=== PATIENT | male | born 1965 | race Caucasian/White ===

== ENCOUNTER 2017-10-05 15:25 | Inpatient (IN) | payer OTHER ==
--- NOTE | 2017-10-05 15:52 | EDPHY ---
H & P Time Seen by Provider: 10/05/17 15:44 HPI/ROS: CHIEF COMPLAINT: Dizziness, headache, hypertensive (240/143) HISTORY OF PRESENT ILLNESS: The patient is a 52 y/o male with a history of hypertension and diabetes complaining of headache, dizziness, blurred vision, and hypertension for 2 weeks. He was recently uninsured and unable to afford his medication for several months and as such stopped taking carvedilol, aspirin , Lasix, and diabetes medication (though his recent A1C was normal). He has been working for several weeks now at a job requiring him to be on his feet most of the day. Two weeks ago he began experiencing dizziness, blurred vision, and swollen feet. He was also having difficulty walking as he lists to the right. Two days ago, he developed a severe and persistent headache, which would wake him at night. He mentioned his symptoms to a coworker, who directed him to have his blood pressure taken at urgent care. His blood pressure was quite elevated at urgent care, prompting his ED visit. He has been experiencing diarrhea, nausea, vomiting as well. He has a history of hospital admission at [facility] for similar symptoms and has a history of some vision loss in the periphery of his left eye, left calf ulcer removal, and a ministroke. He denies any other associated symptoms. REVIEW OF SYSTEMS: A 10 point review of systems was performed and is negative with the exception of the elements mentioned in the history of present illness. 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, left leg ulcer removal Social History: Employed, lives in [place], non-smoker Smoking Status: Never smoked Physical Exam: General Appearance: Alert, pleasant Eyes: Pupils equal and round, no conjunctival pallor or injection ENT, Mouth: Mucous membranes moist Neck: Normal inspection Respiratory: Lungs are clear to auscultation Cardiovascular: Regular rate and rhythm Gastrointestinal: Abdomen is soft and non-tender Neurological: A&O, nonfocal exam Skin: Warm and dry, no rash Extremities: Nontender, 3+ pedal edema Psychiatric: Mood and affect normal Constitutional: Initial Vital Signs Temperature (C) 36.7 C 10/05/17 15:28 Heart Rate 90 10/05/17 15:28 Respiratory Rate 18 10/05/17 15:28 Blood Pressure 234/119 H 10/05/17 15:28 O2 Sat (%) 97 10/05/17 15:28 O2 Delivery Mode Room Air Allergies/Adverse Reactions: No Known Allergies Allergy (Unverified 10/05/17 15:27) Home Medications: Medication Instructions Recorded Aspirin [Aspirin 81mg (*)] 81 mg PO DAILY 10/05/17 Atorvastatin Calcium [Lipitor 40 40 mg PO DAILY 10/05/17 mg (*)] Carvedilol [Coreg] 12.5 mg PO BID 10/05/17 Furosemide [Lasix 80 MG (*)] 80 mg PO DAILY 10/05/17 Ibuprofen [Motrin (*)] 200 mg PO Q6H PRN 10/05/17 amLODIPine BESYLATE [Norvasc 10 mg 10 mg PO DAILY 10/05/17 (*)] glipiZIDE [Glipizide] 5 mg PO DAILY 10/05/17 Medical Decision Making - Diagnostics EKG Interpretation: EKG interpreted by me reveals sinus rhythm, rate 98, inferior Q waves, no ST/T changes. Interpretation: Inferior Q waves Imaging Results: Chest X-Ray 10/05/17 16:08 Impression: Possible left upper lobe mass. Recommendation: Routine PA and lateral chest when the patient is clinically able or noncontrast chest CT. Result called to Dr. Au at 4:[address] 10/05/17 16:08 Impression: 1. No acute intracranial findings. If symptoms persist and clinical suspicion warrants, consider MRI. 2. Diffuse cerebral atrophy with periventricular and subcortical low attenuation consistent with chronic microvascular ischemic gliosis. Findings discussed with VICKIE AU 10/05/2017 at 17:21. ED Course/Re-evaluation: This patient presents with a hypertensive emergency, with a blood pressure of 257/140, severe headache, ataxia and dizziness. Nicardipine IV drip ordered, with a goal of a systolic blood pressure decrease of 20%. EKG reveals no evidence of ischemia or dysrhythmia. CT scan of the brain ordered. If this test is negative, he will need to have an MRI of the brain once stabilized. Concern for CVA, given ataxia, dizziness and severe headache. He is not a tPA candidate, as the symptoms started 2 weeks ago. Old medical records from [facility] requested. 17 10: Nicardipine IV infusing. Patient's heart rate up to 120s, blood pressure 189/102, patient feels nauseated. Nicardipine drip held. Zofran 4 mg IV given. 1800: BP 196/114, HR 104, feels better overall, will continue to hold BP meds for now, consider alternative antihypertensive such as labetolol if/when his blood pressure rises. Dr. Beckham consulted and will admit the patient to the ICU. CT scan of the brain is unremarkable for acute CVA. MRI of the brain will be ordered as inpatient. Serial neurologic exams emergency department unchanged; however I did not get him up to walk to assess his gait because of his serious condition. Systolic blood pressure remained less than 200 throughout the remainder of his emergency department stay. On transfer to the intensive care unit, he was not on antihypertensive medication. I spent a total of 40 minutes of critical care time in obtaining history, performing a physical exam, bedside monitoring of interventions, collecting and interpreting tests and discussion with consultants but not including time spent performing procedures. Differential Diagnosis: Differential diagnosis includes does not limited to intracranial hemorrhage, acute coronary syndrome, acute renal failure, ischemic stroke. - Data Points Laboratory Results: Laboratory Results 10/05/17 15:50 10/05/17 15:50 Medications Given: Amlodipine Besylate (Norvasc) 10 mg PO DAILY [facility] Stop: 04/04/18 12:51 Last Admin: 10/06/17 13:12 Dose: 10 mg Aspirin (Aspirin) 81 mg PO DAILY [facility] Stop: 04/04/18 08:59 Last Admin: 10/06/17 10:16 Dose: Not Given Atorvastatin Calcium (Lipitor) 40 mg PO DAILY [facility] Stop: 04/04/18 08:59 Last Admin: 10/06/17 10:16 Dose: Not Given Carvedilol (Coreg) 12.5 mg PO BIDMEAL [facility] Stop: 04/04/18 17:59 Last Admin: 10/06/17 19:13 Dose: 12.5 mg Enoxaparin Sodium (Lovenox) 40 mg SC DAILY [facility] Stop: 04/04/18 08:59 Last Admin: 10/06/17 09:26 Dose: 40 mg Fentanyl (Sublimaze) 50 mcg IVP Q2HRS PRN PRN Reason: Pain, Severe Unable to Take PO Stop: 10/15/17 19:38 Last Admin: 10/05/17 19:51 Dose: 50 mcg Furosemide (Lasix Injection) 40 mg IVP DAILY [facility] Stop: 04/04/18 08:59 Last Admin: 10/06/17 09:26 Dose: 40 mg Famotidine/Sodium Chloride (Pepcid 20 Mg (Premix)) 50 mls @ 200 mls/hr IV DAILY [facility] Stop: 04/04/18 08:59 Last Admin: 10/06/17 09:25 Dose: 50 mls Labetalol HCl 200 mg/ Dextrose 200 mls @ 0 mls/hr IV CONT [facility]; As Directed PRN Reason: Protocol Stop: 04/03/18 18:59 Last Admin: 10/06/17 14:21 Dose: 200 mls Sodium Chloride (Ns) 1,000 mls @ 100 mls/hr IV CONT [facility] Stop: 04/04/18 12:59 Last Admin: 10/06/17 13:05 Dose: 1,000 mls Insulin Human Lispro (Humalog Lispro) 0 unit SC TIDMEAL [facility] PRN Reason: Protocol Stop: 04/04/18 11:59 Last Admin: 10/06/17 19:01 Dose: Not Given Ondansetron HCl (Zofran) 4 mg IVP Q4HRS PRN PRN Reason: Nausea/Vomiting, Can't Take PO Stop: 04/04/18 11:18 Last Admin: 10/06/17 11:28 Dose: 4 mg Oxycodone/Acetaminophen (Percocet 5/325) 1 tab PO Q4HRS PRN PRN Reason: Pain, Severe Able to Take PO Stop: 10/15/17 19:37 Last Admin: 10/06/17 04:40 Dose: 1 tab Promethazine HCl (Phenergan) 25 mg IVP Q6HRS PRN PRN Reason: Nausea/Vomiting, Can't Take PO Stop: 04/04/18 12:50 Last Admin: 10/06/17 13:00 Dose: 25 mg Discontinued Medications Carvedilol (Coreg) 12.5 mg PO ONCE ONE Stop: 10/06/17 10:46 Last Admin: 10/06/17 10:40 Dose: 12.5 mg Sodium Nitroprusside 50 mg/ (Dextrose) 252 mls @ 0 mls/hr IV EDNOW ONE; Titrate PRN Reason: Protocol Stop: 10/05/17 16:08 Last Admin: 02/27/18 18:56 Dose: Not Given Nicardipine/Sodium Chloride (Cardene 0.1 Mg/Ml (Premix)) 200 mls @ 0 mls/hr IV EDNOW ONE; Titrate PRN Reason: Protocol Stop: 10/05/17 16:13 Last Admin: 10/05/17 16:30 Dose: 200 mls Ondansetron HCl (Zofran) 4 mg IVP EDNOW ONE Stop: 10/05/17 17:11 Last Admin: 10/05/17 17:15 Dose: 4 mg Potassium Chloride (Klor-Con) 20 meq PO ONCE ONE Stop: 10/06/17 11:31 Last Admin: 10/06/17 14:37 Dose: 20 meq Departure - Departure Disposition: [facility] Inpatient Acute Clinical Impression: Hypertensive emergency Condition: Serious Report Scribed for: Vickie Au Report Scribed by: Sheron Lion Date of Report: 10/05/17 Time of Report: 15:51 Physician Review and Approval Statement: 10/05/17 15:51 Portions of this note were transcribed by a medical geneticist. I personally performed a history, physical exam, medical decision making, and confirmed accuracy of information the transcribed note.
--- NOTE | 2017-10-05 16:03 | CPEKG ---
Heart Rate: 98 RR Interval: 612 P-R Interval: 172 QRSD Interval: 98 QT Interval: 364 QTC Interval: 465 P [place]: 52 QRS [place]: 2 T Wave [place]: 46 EKG Severity - ABNORMAL ECG - EKG Impression: SINUS RHYTHM EKG Impression: PROBABLE INFERIOR INFARCT, AGE INDETERMINATE Electronically Signed By: Vickie Lobo 05-Oct-2017 22:58:32
[2017-10-05] MEDS ORDERED: NITROPRUSSIDE SODIUM 50 MG in D5W 250 ML IV ONE (16:07)
[2017-10-05 16:12] LABS: PLATELET COUNT 128 10^3/uL (150-400)
[2017-10-05] MEDS ORDERED: niCARdipine/NACL 200 ML IV ONE (16:12)
[2017-10-05] MEDS ORDERED: ONDANSETRON 4 MG/2 ML VIAL IVP ONE (17:10)
[2017-10-05] MEDS ORDERED: ACETAMINOPHEN 325 MG TAB PO PRN (18:56)
[2017-10-05] MEDS: LABETALOL HCL 200 MG in D5W 200 ML IV SCH ×2 (19:20→21:24)
[2017-10-05] MEDS ORDERED: OXYCODONE/APAP 5/325 TAB PO PRN (19:38)
[2017-10-05] MEDS ORDERED: fentaNYL 100 MCG/2 ML INJ IVP PRN (19:39)
--- NOTE | 2017-10-05 20:16 | GHP ---
[f rep st] HISTORY AND PHYSICAL DATE OF ADMISSION: 10/05/2017 CHIEF COMPLAINT: Headaches, nausea, dizziness. HISTORY OF PRESENT ILLNESS: The patient is a pleasant 52-year-old gentleman with a past medical hist ory of hypertension, diabetes mellitus type 2, and chronic kidney disease, who presented to [facility] emergency room. Patient noticed over the past days that he had worsening headache, associated with nausea. The headache is bifrontal and going into the temporal area. He does not kebede ve any chest pain or back pain, no breathing difficulties, but with these symptoms, he presented to [facility] emergency room, was found to have elevated blood pressure of 257/140 at its peak. He states that he has been treated for hypertension in the past, but due to insurance issues, he has been off his normal antihypertensive regimen, which includes Coreg, Lasix, and amlodipine. H e states he was previously on spironolactone as well, but this made his potassium elevated, so it had to be stopped. He describes previous hospitalizations, one at [facility] and one in [place], [facility] consistent with hypertensive emergency as well. He states because of the headache, he was t aking 600 mg of ibuprofen 3-4 times per day. In the emergency room, after his noted elevated blood p ressure readings, a nicardipine drip was started, which did bring down his systolic blood pressure to 189/100. He started to become tachycardic, so the nicardipine drip was stopped, and I have since re placed this with a labetalol drip with a goal systolic blood pressure of 160-180. He had an initial drop of approximately 20%, and I have recommended an additional 15% lowering over the next 24 hours, which would be approximately 170. PAST MEDICAL HISTORY: 1. Hypertension. 2. Chronic kidney disease, suspected stage 3. 3. Diabetes mellitus type 2. 4. Hyperlipidemia. 5. History of admissions for hypertensive emergency. PAST SURGICAL HISTORY: None. MEDICATIONS: This medication list is taken from his ambulatory orders: 1. Aspirin 81 mg daily. 2. Atorvastatin 40 mg daily. 3. Coreg 12.5 mg twice a day. 4. Amlodipine 10 mg daily. 5. Lasix 80 mg daily. 6. Glipizide 500 mg daily. ALLERGIES: No known drug allergies. FAMILY HISTORY: Mother is , uncertain cause. Father is still living. He is in his 90s. He has a brother who has end-stage renal disease and is currently on hemodialysis. SOCIAL HISTORY: Patient is single. No children. He is a nonsmoker. He drinks alcohol, 1-2 glasses of wine per day. Full code status. REVIEW OF SYSTEMS: CONSTITUTIONAL: No complaints of any recent weight loss. No fevers or chills. ENT: No recent upper respiratory illnesses. CARDIOVASCULAR: No complaints of chest pain, palpitati ons, or syncopal episodes. RESPIRATORY: No complaints of shortness of breath or productive cough. GI: Positive for nausea. No abdominal pain. No back pain. No bloody stools. : No report of an y difficulty with urination. NEUROLOGIC: Positive for headache but no focal weakness. He has noted some vision changes over the prior months to year and has needed reading glasses. HEMATOLOGIC: No history of any deep vein thrombosis or pulmonary embolism. PSYCHIATRIC: No history of anxiety or de pression but he does state his current health condition makes him somewhat depressed. ENDOCRINE: Po sitive for diabetes. No known thyroid abnormalities. SKIN: No new skin rashes. He does have a chr onic left lower extremity wound, which was being followed in a wound clinic. MUSCULOSKELETAL: No fo tiffanie joint pains. PHYSICAL EXAMINATION: VITAL SIGNS: Temperature 36.8. Blood pressure 257/140, improved to 199/117. Heart rate is 90 to 110. Respirations 20. Satting 96% on room air. GENERAL: Patient is resting c omfortably. He seems mildly distressed secondary to headache pain but able to provide a good history . HEENT: Extraocular movements appear intact. No scleral icterus is noted. NECK: Supple. No sanjay nopathy. No thyroid enlargement noted. CHEST: Clear on auscultation with normal respiratory effort . HEART: Slightly tachycardic, regular. No murmurs are appreciated. ABDOMEN: Soft, nontender, no ndistended. No bruit noted. : No Ugalde catheter in place. EXTREMITIES: Generous pitting edema of both lower extremities. NEUROLOGIC: Cranial nerves 2-12 appear intact. Strength 5/5 in extremit ies. LABS: White blood cell count is 6, hemoglobin 12, platelets 128. Sodium 140, potassium 3.5, chlorid e 113. Bicarb is 19, BUN 17, creatinine 1.7, glucose of 161. Troponin less than 0.012. BNP is 977. IMAGIN. CT scan of the head: No acute intracranial findings. 2. Chest x-ray: Possible left upper lobe mass. 3. ECG: By my report, appears to be normal sinus rhythm. There is a peaked T-wave in V2, possible increased voltage. ASSESSMENT AND PLAN: 1. Hypertensive emergency: Improved blood pressures. I recommend that we continue with labetalol d rip with a goal systolic blood pressure between 160 and 170. He was lowered approximately 20% initia lly, and I recommend an additional 15% over the next day. I did talk with him about possibly using b lood pressure medications which could be obtained on a discount formulary so that if he did not have health insurance the cost would not be exorbitant. I did caution him about the use of non-steroidal anti-inflammatories as well, educating him that this could raise his blood pressures and probably syed uld not use non-steroidal anti-inflammatories for pain control, especially if blood pressures at home are uncontrolled. 2. Headache: We will add in Percocet and fentanyl as needed. 3. Possible lung mass, uncertain on chest x-ray: I will order a CT scan of his chest for further in vestigation. 4. Hyperlipidemia: We will continue atorvastatin. 5. Diabetes mellitus type 2, uncertain control: We will check an A1c with his morning labs. Lori johnson is on a sulfonylurea. 6. Chronic kidney disease, suspected stage 3: Patient states he has been told in the past that he h as abnormal kidney function; however, I do not have any other baseline creatinine values for him. We will repeat in the morning. 7. Deep venous thrombosis prophylaxis: Heparin. DISPOSITION: I anticipate he will be here for 2 midnights, probably 3-5 days. /[id number]/MODL
[2017-10-06 05:10] LABS: PLATELET COUNT 123 10^3/uL (150-400)
[2017-10-06] MEDS: LABETALOL HCL 200 MG in D5W 200 ML IV SCH ×3 (08:35→14:21)
[2017-10-06] MEDS: FAMOTIDINE 20 MG/NACL 50 ML IV SCH (09:25)
[2017-10-06] MEDS: FUROSEMIDE 40 MG/4 ML VIAL IVP SCH (09:26)
[2017-10-06] MEDS: ENOXAPARIN 40 MG/0.4 ML SYR SC SCH (09:26)
--- NOTE | 2017-10-06 09:53 | ASMTCMCOM ---
CM Note CM Note Notes: Patient admitted for a hypertensive emergency. He is now stabilized and receiving IV antihypertensives. Patient lives with a roommate/friend and is employed. His family is in [place], and he'd rather not worry them with his hospitalization. He needs a PCP here in [place], and he requested that we look for one at the [facility] location. I called [facility] and got a list of providers accepting new patients. I gave patient this list as well as the phone number of the clinic. He will call to make an appointment to establish care. No other dischrage needs identified. Case Management available if any arise. Date Signed: 10/06/2017 09:52 AM Electronically Signed By:Rosanna Ortiz RN
[2017-10-06] MEDS: ASPIRIN 81 MG CHEWABLE TAB PO SCH (10:16)
[2017-10-06] MEDS: ATORVASTATIN CALCIUM 40 MG TAB PO SCH (10:16)
[2017-10-06] MEDS ORDERED: CARVEDILOL 6.25 MG TAB PO ONE (10:32)
--- NOTE | 2017-10-06 10:34 | ECHO ---
[email or web address] [address] Main: [phone] Fax: Transthoracic Echocardiogram Name: JEFF DUPREE MR#: [id number] Study Date: 10/06/2017 Study Time: 08:14 AM Date of : 1965 Age: 52 year(s) Height: 167.6 cm (66 in.) Weight: 84.37 kg (186 lb.) BSA: 1.94 m2 Gender: Male Examination: Echo Indication: Htn Emergency Image Quality: Contrast: Requested by: Chuck Beckham BP: 194 mmHg/100 mmHg Heart Rate: Rhythm: Normal sinus rhythm Indication: Htn Emergency Procedure Staff Nurse Recruiter: Babar Simons RDCS Reading Physician: Adan Sarabia MD Requesting Provider: Conclusions: Normal size left ventricle. No LV hypertrophy. Normal global systolic LV function. EF is 72 %. Trivial aortic valve regurgitation. Trivial tricuspid valve regurgitation. The pulmonic valve is normal in appearance and function. Measurements: Chambers Valvular Assessment AV/MV Valvular Assessment TV/PV Normal Normal Normal Name Value Range Name Value Range Name Value Range Ao Ruthann (MM): 3.3 cm (2.2 cm-3.7 AV Vmax: 1.17 m/s (1 m/s-1.7 PV Vmax: 1.11 m/s (0.6 m/s-0.9 cm) m/s) m/s) IVSd (2D): 1.0 cm (0.6 cm-1.1 AV maxP mmHg ( - ) PV PGmax: 5 mmHg ( - ) cm) LVOT Vmax: 0.91 m/s (0.7 m/s-1.1 LVDd (2D): 4.7 cm (4.2 cm-5.9 m/s) cm) MV E Vmax: 0.96 m/s ( - ) LVDs (2D): 2.8 cm (2.1 cm-4 MV A Vmax: 0.86 m/s ( - ) cm) MV E/A: 1.12 ( - ) LVPWd (2D): 0.9 cm (0.6 cm-1 cm) LVEF (2D): 72 (>=54 %) Continued Measurements: Chambers Valvular Assessment AV/MV Name Value Name Value LADs Lon.1 cm MV E' Septal: 0.05 m/s LA Area: 20.1 cm2 MV E/E' Septal: 18.30 Patient: JEFF DUPREE Study Date: 10/06/2017 Page 1 of 2 08:14 AM LA Volume: 69 ml MV E/E' Lateral: 8.70 LA Volume Index: 35.6 ml/m2 Findings: Left Ventricle: Normal size left ventricle. No LV hypertrophy. Normal global systolic LV function. EF is 72 %. No regional wall motion abnormality. Right Ventricle: Normal size right ventricle. Normal RV function. Left Atrium: The left atrium is normal in size. Right Atrium: The right atrium is normal in size. Mitral Valve: The mitral valve is normal in appearance and function. Aortic Valve: Mild aortic cusp calcification is noted. Trivial aortic valve regurgitation. Tricuspid Valve: The tricuspid valve is normal in appearance and function. Trivial tricuspid valve regurgitation. Pulmonic Valve: The pulmonic valve is normal in appearance and function. Aorta: The aorta is normal. Pericardium: No pericardial effusion. (No Signature Object) Patient: JEFF DUPREE Study Date: 10/06/2017 Page 2 of 2 08:14 AM [id number]
[2017-10-06] MEDS ORDERED: CARVEDILOL 25 MG TAB PO ONE (10:45)
[2017-10-06] MEDS ORDERED: ONDANSETRON 4 MG/2 ML VIAL IVP PRN (11:19)
[2017-10-06] MEDS ORDERED: D50W 25 GM/50 ML SYR IVP PRN (11:29)
[2017-10-06] MEDS ORDERED: POTASSIUM CL 20 MEQ TAB PO ONE (11:30)
[2017-10-06] MEDS ORDERED: PROMETHAZINE HCL 25 MG/ML INJ IVP PRN (12:51)
[2017-10-06] MEDS: INSULIN LISPRO 100 UNIT/ML SC SCH ×2 (12:56→19:01)
[2017-10-06] MEDS ORDERED: NS 1,000 ML IV SCH (13:00)
--- NOTE | 2017-10-06 14:00 | HOSPPROG ---
Hospitalist Progress Note Assessment/Plan: # hypertensive emergency- patient with elevated blood pressures headaches gait instability and vomiting- creatinine 1.7 at presentation Telemetry (personally reviewed and interpreted) sinus rhythm 60-70's -oxygen saturations 96% on room air - continue labetalol drip wean as able - restart home carvedilol - restart home Norvasc # nausea-suspect secondary to above-treat blood pressure and symptoms aggressively today # acute kidney injury- suspect multifactorial secondary to hypertensive emergency and concurrent NSAID use for headache - holding nephrotoxins - IV fluids today for hydration # diabetes- hemoglobin A1c 5.5 on presentation- clearly well controlled on p.o. Agents at home - holding glipizide - cover with sliding scale insulin while inpatient # query lung mass on chest x-ray- noncontrast CT chest(personally reviewed and interpreted) confirms presence of no lung mass # prophylaxis Lovenox # diet cardiac # disposition-greater than 2 midnights as the patient continues to need ongoing IV medications for blood pressure control Discussed the case with Dr. Zarate- will add back home blood pressure medications today and titrate labetalol as able Subjective: Headache and nausea Objective: Vital Signs Temp Pulse Resp BP Pulse Ox 36.4 C 74 15 192/97 H 98 10/06/17 12:35 10/06/17 13:00 10/06/17 13:00 10/06/17 13:12 10/06/17 13:00 Laboratory Results 10/06/17 04:35 10/06/17 04:35 10/05/17 10/06/17 10/07/17 05:59 05:59 05:59 Intake Total 805 Output Total 600 200 Balance 205 -200 - Physical Exam Constitutional: appears nourished Eyes: anicteric sclera Ears, Nose, Mouth, Throat: dry mucous membranes Cardiovascular: regular rate and rhythym Respiratory: no respiratory distress Gastrointestinal: normoactive bowel sounds Genitourinary: no bladder fullness Skin: warm Musculoskeletal: No asymmetric calves Neurologic: AAOx3 Psychiatric: interacting appropriately Lymph, Heme, Immunologic: no cervical LAD ICD10 Worksheet Patient Problems: Problems Problem Status Onset Hypertensive emergency Acute
[2017-10-06] MEDS: CARVEDILOL 6.25 MG TAB PO SCH (19:13)
[2017-10-07 05:59] LABS: PLATELET COUNT 115 10^3/uL (150-400)
[2017-10-07] MEDS: INSULIN LISPRO 100 UNIT/ML SC SCH ×2 (07:35→12:03)
[2017-10-07] MEDS: CARVEDILOL 6.25 MG TAB PO SCH (07:46)
[2017-10-07] MEDS: ATORVASTATIN CALCIUM 40 MG TAB PO SCH (07:46)
[2017-10-07] MEDS: ASPIRIN 81 MG CHEWABLE TAB PO SCH (07:47)
[2017-10-07] MEDS: ENOXAPARIN 40 MG/0.4 ML SYR SC SCH (07:47)
[2017-10-07 07:49] VITALS: TEMP 99
[2017-10-07] MEDS: FAMOTIDINE 20 MG/NACL 50 ML IV SCH (09:49)
[2017-10-07] MEDS: FUROSEMIDE 40 MG/4 ML VIAL IVP SCH (10:22)
[2017-10-07 11:56] VITALS: BP 147/78; PULSE 75; RESP 18; O2SAT 93
--- NOTE | 2017-10-07 20:45 | GDS ---
[f rep st] DISCHARGE SUMMARY DISCHARGE DIAGNOSES: 1. Hypertensive emergency. 2. Diabetes mellitus. 3. Chronic kidney disease. HISTORY OF PRESENT ILLNESS: This is a 52-year-old male with a history of hypertension, diabetes, and chronic kidney disease, who presents with complaints of headache and nausea. For details of patient 's initial presentation, please see the history and physical dated 10/05/2017. CONSULTATIVE SERVICES: None. PROCEDURES: On 10/06/2017, patient had a noncontrast CT of the chest that showed no acute findings. On 10/06/2017, patient had a transthoracic echocardiogram that showed normal LV size and function. On 10/05/2017, patient had a noncontrast CT of the head that showed no acute intracranial findings. HOSPITAL COURSE BY ISSUE: 1. Hypertensive emergency. The patient was initiated on a labetalol drip and obtained adequate cont rol of his blood pressures from admission 240 systolic to 160 systolic. Patient's headache resolve. He was initiated on home dosing of his Coreg and Norvasc and had persistent control of his systolics in the 140s to 160s. We did not add back his Lasix dosing at this time. We were unclear as to his recent baseline kidney function and did not want to push his kidney function any further while rapidl y adjusting his blood pressure meds. He has been instructed to follow at his primary care clinic in the next 1-2 weeks for a laboratory and blood pressure check. At that time, if appropriate or necess piper, additional antihypertensives can be added back to his regimen. 2. CKD. Patient's creatinine fluctuated between 1.5 and 1.7 during this hospital stay. 3. Diabetes. Patient was continued on his glipizide at disposition and again instructed to follow w ith a primary care provider for ongoing management of his diabetes. 4. Query of a lung mass on chest imaging on admission. Patient had CT chest to confirm and no abnor malities were identified. MEDICATIONS: At the time of disposition, please reference the med rec printed on 10/07/2017. FOLLOWUP APPOINTMENTS: Include with his newly established primary care provider, Dr. Perez, for blo od pressure and laboratory check. PENDING STUDIES: At the time of this dictation are none. TIME SPENT: I spent greater than 30 minutes in the planning and coordination of this discharge. /[id number]/MODL
== END 2017-10-07 12:48 | disposition home or self-care (01) | DRG 683 ==
LOC: F2N 18:22
PROVIDERS: ADMIT Internal Medicine; ATTEND Hospitalist
DX: I12.9 Hypertensive chronic kidney disease with stage 1 through stage 4 chronic kidney disease, or unspecified chronic kidney disease (principal); I16.1 Hypertensive emergency; N17.9 Acute kidney failure, unspecified; N18.3 Chronic kidney disease, stage 3 (moderate); E11.622 Type 2 diabetes mellitus with other skin ulcer; L97.221 Non-pressure chronic ulcer of left calf limited to breakdown of skin; Z79.84 Long term (current) use of oral hypoglycemic drugs; E78.5 Hyperlipidemia, unspecified; I69.998 Other sequelae following unspecified cerebrovascular disease; H54.62 Unqualified visual loss, left eye, normal vision right eye
CPT/HCPCS: 96374; 97116-GP; 97161-GP; J1650; J1940; J2405; J2550

== ENCOUNTER 2017-11-20 12:01 | Outpatient (CLI) | payer OTHER ==
[2017-11-20] MEDS ORDERED: ACETAMINOPHEN 325 MG TAB PO ONE (12:30)
[2017-11-20] MEDS ORDERED: diphenhydrAMINE 25 MG CAP PO ONE (12:30)
== END 2017-11-20 16:05 | disposition home or self-care (01) ==
LOC: FOBOP 12:01
PROVIDERS: ATTEND Internal Medicine Hematology & Oncology
PROC: 30233N1 Transfusion of Nonautologous Red Blood Cells into Peripheral Vein, Percutaneous Approach (ICD-10-PCS; principal; 2017-11-20)
DX: D64.9 Anemia, unspecified (principal); D47.2 Monoclonal gammopathy
CPT/HCPCS: 36430; P9016

== ENCOUNTER → 2018-06-16 | Outpatient (CLI) | payer OTHER | LOC: BMCIMAGING 08:07 | PROVIDERS: ATTEND Internal Medicine | DX: K80.20 Calculus of gallbladder without cholecystitis without obstruction (principal); K76.0 Fatty (change of) liver, not elsewhere classified; B18.2 Chronic viral hepatitis C ==